=== PATIENT | male | born 1980 | race African-American/Black ===

== ENCOUNTER 2018-11-23 23:24 | Emergency (ER) | payer MEDICAID, OTHER ==
[~2018-11-23] VITALS: Ht 170.2 cm; Wt 67.0 kg
[~2018-11-23 23:24] MED LIST: ALBUTEROL; RISPERDAL; ZOLOFT
[2018-11-24 03:53] VITALS: BP 102/66
== END 2018-11-24 03:55 | disposition home or self-care (01) ==
LOC: ER 23:24
DX: S01.511A Laceration without foreign body of lip, initial encounter (principal); J45.909 Unspecified asthma, uncomplicated; F17.200 Nicotine dependence, unspecified, uncomplicated; Z98.890 Other specified postprocedural states; W22.8XXA Striking against or struck by other objects, initial encounter; Y93.89 Activity, other specified; Y92.89 Other specified places as the place of occurrence of the external cause; Y99.8 Other external cause status
CPT/HCPCS: 70486; 99284

== ENCOUNTER 2022-09-13 10:10 | Emergency (ER) | payer MEDICAID ==
[~2022-09-13] VITALS: Ht 170.2 cm; Wt 61.0 kg
[2022-09-13 10:12] VITALS: BP 111/71
[2022-09-13] MEDS ORDERED: IBUPROFEN 600MG TABLET PO ONE (14:15)
== END 2022-09-13 15:31 | disposition home or self-care (01) ==
LOC: ER 10:10
DX: S52.602A Unspecified fracture of lower end of left ulna, initial encounter for closed fracture (principal); Z98.890 Other specified postprocedural states; Y04.0XXA Assault by unarmed brawl or fight, initial encounter; Y93.89 Activity, other specified; Y92.89 Other specified places as the place of occurrence of the external cause; Y99.8 Other external cause status
CPT/HCPCS: 29125; 73130; 99283

== ENCOUNTER 2024-12-17 00:01 | Emergency (ER) | payer MEDICAID ==
[~2024-12-17] VITALS: Ht 167.6 cm; Wt 72.0 kg
[2024-12-17 00:03] VITALS: O2SAT 99
[2024-12-17] MEDS: MORPHINE SULFATE 4 MG/ML INJ (FOR IV/IM USE) IV ONE (00:21)
[2024-12-17] MEDS: TETANUS, DIPHTHERIA, PERTUSSIS VAC/PF 0.5ML (>10YR OLD) IM ONE (00:22)
[2024-12-17 00:27] LABS: BASOPHILS % 0.7 % (0.0-2.0); EOSINOPHILS % 6.4 % (0.0-5.0); HEMATOCRIT. 39.7 % (42.0-52.0); LYMPHOCYTES % 35.3 % (20.0-50.0); MEAN CORPUSCULAR HEMOGLOBIN 27.4 pg (28.0-32.0); MEAN CORPUSCULAR HGB CONC 32.7 g/dL (31.0-37.0); MEAN CORPUSCULAR VOLUME 83.8 fL (80.0-94.0); MONOCYTES % 8.8 % (2.0-8.0); NEUTROPHILS % 48.8 % (40.0-76.0); PLATELET 264 x1000/uL (130-400); RED BLOOD CELL COUNT 4.74 mill/uL (4.7-6.1); RED CELL DISTRIBUTION WIDTH 14.7 % (11.6-14.6); WHITE BLOOD COUNT 6.2 x1000/uL (4.5-11.0)
[2024-12-17 00:36] LABS: CHLORIDE 107 mEq/L (98-107); POTASSIUM 3.8 mEq/L (3.5-5.1); SODIUM 140 mEq/L (136-145)
[2024-12-17 00:37] LABS: CARBON DIOXIDE 27 mEq/L (21-32)
[2024-12-17 00:38] LABS: CALCIUM 8.9 mg/dL (8.7-10.4)
[2024-12-17 00:42] LABS: CREATININE 1.5 mg/dL (0.6-1.3); GLUCOSE 151 mg/dL (70-105); UREA NITROGEN BLOOD 21 mg/dL (9-23)
[2024-12-17] MEDS: BACITRACIN ZINC OINT UDPKT TOP NR (00:58)
[2024-12-17] MEDS: LIDOCAINE HCL/PF 1% 10 MG/ML 5ML VIAL INFIL NR (01:06)
[2024-12-17] MEDS ORDERED: AMOX1TAB16 MT (03:16)
[2024-12-17] MEDS ORDERED: IBUP-2029 MT (03:16)
[2024-12-17 04:00] VITALS: BP 117/78; PULSE 93; RESP 21; TEMP 37; O2SAT 98
== END 2024-12-17 04:44 | disposition home or self-care (01) ==
LOC: ER 00:01
DX: S61.213A Laceration without foreign body of left middle finger without damage to nail, initial encounter (principal); J45.909 Unspecified asthma, uncomplicated; Z00.00 Encounter for general adult medical examination without abnormal findings; Z79.899 Other long term (current) drug therapy; Z98.890 Other specified postprocedural states; W34.00XA Accidental discharge from unspecified firearms or gun, initial encounter; Y93.89 Activity, other specified; Y92.89 Other specified places as the place of occurrence of the external cause; Y99.8 Other external cause status
CPT/HCPCS: 80048; 85025; 86850; 86900; 86901; 36415; 73130; 90715; 12001; 90471; 96374; 99284; J2003; J2270; Z7610 ×4